=== PATIENT | female | born 1970 | race Caucasian/White ===

== ENCOUNTER 2017-08-12 10:41 | Emergency (ER) | payer OTHER ==
[~2017-08-12] VITALS: Ht 165.1 cm; Wt 63.5 kg
[2017-08-12] MEDS ORDERED: ZITHROMAX250 MG PO (11:58)
[2017-08-12] MEDS ORDERED: METHYLPREDNISOLO4 M1 PO (11:58)
[2017-08-12] MEDS ORDERED: ALLEGRA-D 12 H1 EACH PO (11:58)
--- NOTE | 2017-08-12 19:30 | EKG ---
[facility] [address] [place], [place] [address] Signed Normal sinus rhythm ST \T\ Marked T wave abnormality, consider anterolateral ischemia Prolonged QT Abnormal ECG No previous ECGs available Confirmed by MAKSIM ROBERTS MD ([id number]) on 08/12/2017 7:30:15 PM Electronically Signed By: MAKSIM ROBERTS MD 08/12/17 1930 PATIENT NAME: BRIANNAJULIO Electrocardiogram DATE OF : 70 PHYSICIAN: MAKSIM ROBERTS MD REPORT #: [id number] REPORT IS CONFIDENTIAL AND NOT TO BE RELEASED WITHOUT AUTHORIZATION
[2017-08-13] MEDS ORDERED: ASPIR 8181 MG PO (12:52)
[2017-08-14] MEDS ORDERED: NICOTINE1 EAC1 TD (13:02)
[2017-08-14] MEDS ORDERED: LIPITOR40 MG PO (13:03)
[2017-08-14] MEDS ORDERED: NICOTINE GUM2 MG BUCCAL (13:03)
[2017-08-14] MEDS ORDERED: BENAZEPRIL HCL10 MG PO (13:04)
[2017-08-14] MEDS ORDERED: NORVASC5 MG PO (13:04)
== END 2017-08-12 12:11 | disposition home or self-care (01) ==
LOC: ED 10:41
DX: R07.9 Chest pain, unspecified (principal); R05 Cough; H83.09 Labyrinthitis, unspecified ear; I10 Essential (primary) hypertension; F17.200 Nicotine dependence, unspecified, uncomplicated; Z88.2 Allergy status to sulfonamides; Z88.8 Allergy status to other drugs, medicaments and biological substances; Z88.5 Allergy status to narcotic agent
CPT/HCPCS: 80053; 84484; 85025; 93005; 93010; 99284; 99406